=== PATIENT | female | born 1980 | race Two or more races ===

== ENCOUNTER 2023-02-02 12:55 | Outpatient (CLI) | payer OTHER | END 2023-02-02 13:04 | disposition home or self-care (01) | LOC: SONOGRAMA 12:55 | DX: M25.511 Pain in right shoulder (principal) ==

== ENCOUNTER 2023-08-08 10:13 | Outpatient (CLI) | payer OTHER | END 2023-08-08 10:23 | disposition home or self-care (01) | LOC: MRI 10:13 | DX: M25.511 Pain in right shoulder (principal) | CPT/HCPCS: 73223 ==